=== PATIENT | female | born 1980 ===

== ENCOUNTER 2018-02-23 16:11 | Emergency (ER) | payer SELFPAY ==
[2018-02-23 16:25] VITALS: TEMP 98.2
[2018-02-23 17:47] LABS: BASO % 0.6 % (0.0-2.0); EOS # 0.1 K/uL (0.0-0.7); EOS % 1.8 % (0.0-4.0); HCG,QUALITATIVE URINE NEGATIVE (NEGATIVE); LYMPH # 2.6 K/uL (1.0-4.3); LYMPH % 36.5 % (20.0-40.0); MEAN CORPUSCULAR HEMOGLOBIN 21.3 pg (27.0-31.0); MEAN CORPUSCULAR HGB CONC 31.9 g/dL (33.0-37.0); MEAN PLATELET VOLUME 9.6 fL (7.2-11.7); MONO # 0.5 K/uL (0.0-0.8); MONO % 6.9 % (0.0-10.0); NEUT # 3.9 K/uL (1.8-7.0); NEUT % 54.2 % (50.0-75.0); RBC 4.7 Mil/uL (3.80-5.20); RED CELL DISTRIBUTION WIDTH 19.2 % (11.5-14.5); WHITE BLOOD COUNT 7.2 K/uL (4.8-10.8)
[2018-02-23] MEDS ORDERED: Sodium Chloride 0.9% 1,000 ML IV STA (17:49)
[2018-02-23 17:50] LABS: MEAN CELL VOLUME 66.9 fL (81.0-99.0)
[2018-02-23 17:58] LABS: ALB/GLOB RATIO 1.4 (1.0-2.1); ALT/SGPT 12 U/L (9-52); AST/SGOT 8 U/L (14-36); BLOOD UREA NITROGEN 19 mg/dL (7-17); CALCIUM 8.7 mg/dl (8.6-10.4); GFR NON-AFRICAN AMERICAN > 60; SQUAMOUS EPITHIAL 6 /hpf (0-5); URINE BACTERIA MOD (<OCC); URINE BILIRUBIN NEGATIVE (NEGATIVE); URINE BLOOD NEGATIVE (NEGATIVE); URINE CLARITY Hazy (Clear); URINE COLOR Yellow (YELLOW); URINE GLUCOSE (UA) NORMAL (Normal); URINE LEUKOCYTE ESTERASE NEG Leu/uL (Negative); URINE PROTEIN NEGATIVE (NEGATIVE); URINE UROBILINOGEN NORMAL mg/dL (0.2-1.0)
--- NOTE | 2018-02-23 18:01 | C.PDOC ---
History Of Present Illness 37 year old female presents to the ED for evaluation after syncope yesterday. The patient reports two episodes of syncope last week. She admits to feeling generalized weakness, light headed, and productive cough for one week. The pat ient denies any fever, chills, palpitations, nausea, vomiting or diarrhea. Her LMP was last month and she notes it was heavier than usual. Time Seen by Provider: 02/23/18 17:39 Chief Complaint (Nursing): Syncope History Per: Patient History/Exam Limitations: no limitations Onset/Duration Of Symptoms: Days Associated Symptoms Preceding Syncopal Episode: Lightheadedness Recent travel outside of the [place]: No Past Medical History Reviewed: Historical Data, Nursing Documentation, Vital Signs Vital Signs: Last Vital Signs Temp 98.2 F 02/23/18 16:23 Pulse 85 02/23/18 16:23 Resp 20 02/23/18 16:23 BP 131/87 02/23/18 16:23 Pulse Ox 100 02/23/18 16:23 - Medical History PMH: No Chronic Diseases Surgical History: No Surg Hx Family History: States: Unknown Family Hx - Social History Hx Alcohol Use: No Hx Substance Use: No Review Of Systems Except As Marked, All Systems Reviewed And Found Negative. Constitutional: Positive for: Weakness. Negative for: Fever Respiratory: Positive for: Cough (productive cough x 1 week) Neurological: Positive for: Other (Light-Headed) Physical Exam - Physical Exam Additional Physical Exam Comments: Constitutional: No acute distress. Head: Normocephalic. Atraumatic. Eyes: PERRL. ENT: Moist mucous membranes. Neck: Supple. Cardiovascular: Regular rate. Radial pulse 2+ bilaterally. Chest: No tenderness. Respiratory: Frequent coughing. GI: Soft. Nontender. Nondistended. Back: No CVA tenderness. Musculoskeletal: No tenderness or swelling of extremities. Skin: No rash. Neurologic: Alert, no focal deficit. ED Course And Treatment - Laboratory Results Result Diagrams: 02/23/18 17:41 02/23/18 17:41 O2 Sat by Pulse Oximetry: 100 (RA) Pulse Ox Interpretation: Normal Medical Decision Making Medical Decision Making: Impression: 37 year old female who syncopized yesterday and had two syncope episodes on last week. She reports feeling generalized weakness, light headed, intermittent SOB and productive cough for one week Plan: -EKG -CMP -Troponin I -CBC -Chest X-Ray -Glucose Labs -IV Fluids -HCG -UA EKG NSR 80 bpm, no ST/T wave changes. Orthostatic vital signs negative. CXR no consolidation or infiltrate. Disposition - Disposition Disposition: HOME/ ROUTINE Disposition Time: 18:24 Condition: STABLE Additional Instructions: Sunday, 9am [facility] [address] [place], [place] Prescriptions: Azithromycin [Zithromax] 2 tab PO DAILY #6 tab Benzonatate [Tessalon Perles] 200 mg PO TID #30 sgl Instructions: Cough, Adult (DC) Forms: [employer] ([place]), Work Excuse - Clinical Impression Clinical Impression: Syncope - Scribe Statement The provider has reviewed the documentation as recorded by the Scribe (Enid Benavides) Provider Attestation: All medical record entries made by the Scribe were at my direction and per sonally dictated by me. I have reviewed the chart and agree that the record accurately reflects my personal performance of the history, physical exam, medical decision making, and the department course for this patient. I have also personally directed, reviewed, and agree with the discharge instructions and disposition.
[2018-02-23] MEDS ORDERED: Sodium Chloride 0.9% 1,000 ML ONE (18:05)
[2018-02-23 18:23] VITALS: BP 125/89; PULSE 72; RESP 15
[2018-02-23 18:25] VITALS: O2SAT 100
--- NOTE | 2018-02-23 18:28 | RAD ---
Date of service: 02/23/2018 HISTORY: syncope COMPARISON: No prior. TECHNIQUE: Chest PA and lateral FINDINGS: LUNGS: Mild venous congestion. PLEURA: No significant pleural effusion identified. No pneumothorax apparent. CARDIOVASCULAR: No atherosclerotic calcification present Normal. OSSEOUS STRUCTURES: No significant abnormalities. VISUALIZED UPPER ABDOMEN: Normal. OTHER FINDINGS: None. IMPRESSION: Mild venous congestion.
--- NOTE | 2018-02-26 19:18 | CARD ---
APPROVED REPORT Date of service: 02/23/2018 EKG Measurement Heart [id number] <Conclusion> Normal sinus rhythm Normal ECG
== END 2018-02-23 18:46 | disposition home or self-care (01) ==
LOC: C.ER 16:11
DX: R55 Syncope and collapse (principal)
CPT/HCPCS: 71046; 80053; 81001; 82948; 84484; 84703; 85025; 93005; 96360; 99285; J7030